=== PATIENT | female | born 1965 | race Caucasian/White ===

== ENCOUNTER 2017-01-15 11:34 | Outpatient (CLI) | payer OTHER ==
[2015-07-22 09:20] VITALS: BP 136/74
[2017-01-15 11:59] LABS: BASOPHILS % 1.1 (0.0-1.5); EOSINOPHILS % 2.4 % (0.0-6.8); LYMPHOCYTES # 2.9 # k/uL (0.6-4.0); MEAN CORPUSCULAR HEMOGLOBIN 29.7 pg (28.0-34.0); MONOCYTES # 0.5 # k/uL (0.0-0.9); MONOCYTES % 5.5 % (0.0-11.0); NEUTROPHILS # 4.7 # k/uL (1.4-7.7)
[2017-01-15 12:54] LABS: eGFR (African) > 60; eGFR (Non-African) > 60
[2017-01-19 11:21] LABS: ADENOVIRUS F 40/41 Not Detected (Not Detected); ASTROVIRUS Not Detected (Not Detected); C. DIFFICILE (TOXIN A/B) Not Detected (Not Detected); CRYPTOSPORIDIUM Not Detected (Not Detected); CYCLOSPORA CAYETANENSIS Not Detected (Not Detected); ENTAMOEBA HISTOLYTICA Not Detected (Not Detected); GIARDIA LAMBLIA Not Detected (Not Detected); ROTAVIRUS A Not Detected (Not Detected); SAPOVIRUS Not Detected (Not Detected); VIBRIO CHOLERAE Not Detected (Not Detected)
== END 2017-01-15 11:35 ==
LOC: LAB 11:34
PROVIDERS: ATTEND Physician Assistant
DX: R19.7 Diarrhea, unspecified (principal)
CPT/HCPCS: 36415; 80053; 83036; 85025; 87507

== ENCOUNTER 2017-07-26 09:02 | Outpatient (CLI) | payer OTHER ==
[2015-07-22 09:20] VITALS: BP 136/74
[2017-07-26 09:53] LABS: eGFR (African) > 60; eGFR (Non-African) > 60
== END 2017-07-26 09:03 ==
LOC: LAB 09:02
PROVIDERS: ATTEND Nurse Practitioner
DX: E11.9 Type 2 diabetes mellitus without complications (principal)
CPT/HCPCS: 36415; 80053; 80061

== ENCOUNTER 2019-09-20 07:56 | Outpatient (CLI) | payer OTHER ==
[2015-07-22 09:20] VITALS: BP 136/74
[2019-09-20 09:11] LABS: HDL 32 mg/dL (>40); eGFR (Non-African) > 60
== END 2019-09-20 08:00 ==
LOC: LAB 07:56
PROVIDERS: ATTEND Nurse Practitioner
DX: E11.9 Type 2 diabetes mellitus without complications (principal); E78.5 Hyperlipidemia, unspecified; R74.8 Abnormal levels of other serum enzymes
CPT/HCPCS: 36415; 80053; 80061

== ENCOUNTER 2019-11-06 07:46 | Outpatient (CLI) | payer OTHER ==
[2015-07-22 09:20] VITALS: BP 136/74
[2019-11-06 08:12] LABS: A1C 8.5 % (<5.7)
[2019-11-06 09:00] LABS: eGFR (Non-African) > 60
== END 2019-11-06 07:52 ==
LOC: LAB 07:46
PROVIDERS: ATTEND Nurse Practitioner
DX: E11.9 Type 2 diabetes mellitus without complications (principal)
CPT/HCPCS: 36415; 80053; 83036; 84443